=== PATIENT | female | born 1955 | race Caucasian/White ===

== ENCOUNTER → 2025-02-18 | Outpatient (CLI) | payer OTHER ==
--- NOTE | 2025-02-19 09:20 | HMCIMG ---
EXAM: CT Cardiac calcium scoring. CLINICAL HISTORY: Screening. TECHNIQUE: Thin collimated axial CT cardiac images were obtained. A CT scan is done according to ALARA (As Low As Reasonably Achievable). CONTRAST: None. COMPARISON: None provided. FINDINGS: Calcium Score: VESSEL Number of lesions Volume mm3 Equi. Mass/mg Calcium score LM 2 6.3 - 6.3 LAD 1 76.4 - 83.3 LCX 0 0.0 - 0.0 RCA 0 0.0 - 0.0 Total 3 82.7 - 89.6 IMPRESSION: The total calcium score is 89.6. 71st percentile. /Reserve
== END | disposition home or self-care (01) ==
LOC: RAH 14:26
PROVIDERS: ATTEND Internal Medicine Critical Care Medicine
DX: Z13.6 Encounter for screening for cardiovascular disorders (principal); I12.9 Hypertensive chronic kidney disease with stage 1 through stage 4 chronic kidney disease, or unspecified chronic kidney disease; N18.9 Chronic kidney disease, unspecified
CPT/HCPCS: 75571